=== PATIENT | female | born 1990 | race Caucasian/White ===

== ENCOUNTER 2019-09-30 15:42 | Outpatient (CLI) | payer BC ==
--- NOTE | 2019-09-30 16:24 | Non Stress Test Report ---
Non Stress Test Datetime Report Generated by CPN: 09/30/2019 16:24 INDICATION Indication for Study (NST) Other: Variable in office VITAL SIGNS Temperature - NST: 97.7 MONITORING Monitor Explained: Monitor Explained; Test Explained; Patient Verbalized Understanding Time on Monitor: 09/30/2019 15:50 Time off Monitor: 09/30/2019 16:20 NST Duration: 30 NST INTERVENTIONS NST Interventions: PO Hydration Physician Notified NST: N Bartlett CNM BABY A: [id number] BABY A Movement : Present Contraction Frequency : rare FHR Baseline : 130 Accelerations : 15X15 Decelerations : None Variability : Moderate 6-25bpm NST Review: Meets Criteria for Reactive NST NST Review and Verified By : Edwin Tolbert RN NSWei Results: Reactive NST REPORT Report Trigger: Send Report
== END 2019-09-30 16:36 | disposition home or self-care (01) ==
LOC: LC 15:42
PROVIDERS: ATTEND Obstetrics & Gynecology
DX: O36.8330 Maternal care for abnormalities of the fetal heart rate or rhythm, third trimester, not applicable or unspecified (principal); Z3A.35 35 weeks gestation of pregnancy
CPT/HCPCS: 59025

== ENCOUNTER 2019-10-28 08:18 | Outpatient (CLI) | payer BC ==
[2019-10-28 09:04] LABS: URINE AMPHETAMINES SCREEN NEGATIVE; URINE BARBITURATES SCREEN NEGATIVE; URINE BENZODIAZEPINES SCREEN NEGATIVE; URINE COCAINE SCREEN NEGATIVE; URINE MARIJUANA (THC) SCREEN NEGATIVE; URINE METHADONE SCREEN NEGATIVE; URINE PHENCYCLIDINE SCREEN NEGATIVE
--- NOTE | 2019-10-28 09:33 | Non Stress Test Report ---
Non Stress Test Datetime Report Generated by CPN: 10/28/2019 09:33 DEMOGRAPHIC EGA NST: 39.3 INDICATION Indication for Study (NST) Other: IUP at 39.3; Not in labor VITAL SIGNS Temperature - NST: 98.4 Pulse - NST: 83 RESP - NST: 18 NBPSYS NST: 114 NBPDIA NST: 60 MONITORING Monitor Explained: Monitor Explained; Test Explained; Patient Verbalized Understanding Time on Monitor: 10/28/2019 08:31 Time off Monitor: 10/28/2019 09:14 NST Duration: 43 NST INTERVENTIONS NST Interventions: PO Hydration Physician Notified NST: C. Thompson, CNM BABY A: [id number] BABY A Movement : Present Contraction Frequency : Irreg FHR Baseline : 130 Accelerations : 15X15 Decelerations : Variable Variability : Moderate 6-25bpm NST Review: Meets Criteria for Reactive NST NST Review and Verified By : SAutry NST Results: Reactive NST COMMENTS NST Comments: one area with broken tracing at 0843 questionable variable. NST REPORT Report Trigger: Send Report
== END 2019-10-28 09:26 | disposition home or self-care (01) ==
LOC: LC 08:18
PROVIDERS: ATTEND Student in an Organized Health Care Education/Training Program
DX: O47.1 False labor at or after 37 completed weeks of gestation (principal); O36.8330 Maternal care for abnormalities of the fetal heart rate or rhythm, third trimester, not applicable or unspecified; Z3A.39 39 weeks gestation of pregnancy
CPT/HCPCS: 59025; 80307; 84112

== ENCOUNTER 2019-11-06 16:18 | Outpatient (CLI) | payer BC ==
[2019-11-06 16:58] LABS: APPEARANCE,URINE SLIGHTLY-CLOUDY; BILIRUBIN,URINE NEGATIVE (NEGATIVE); COLOR,URINE YELLOW; GLUCOSE, URINE NEGATIVE (NEGATIVE); KETONES,URINE NEGATIVE (NEGATIVE); LEUKOCYTE ESTERASE,URINE MODERATE (NEGATIVE); NITRITE,URINE NEGATIVE (NEGATIVE); PROTEIN,URINE NEGATIVE (NEGATIVE); URINE SPECIFIC GRAVITY 1.015; UROBILINOGEN,URINE NEGATIVE mg/dL (<2.0)
[2019-11-06 17:20] LABS: URINE AMPHETAMINES SCREEN NEGATIVE; URINE BARBITURATES SCREEN NEGATIVE; URINE BENZODIAZEPINES SCREEN NEGATIVE; URINE COCAINE SCREEN NEGATIVE; URINE MARIJUANA (THC) SCREEN NEGATIVE; URINE METHADONE SCREEN NEGATIVE; URINE PHENCYCLIDINE SCREEN NEGATIVE
--- NOTE | 2019-11-06 18:55 | Non Stress Test Report ---
Non Stress Test Datetime Report Generated by CPN: 11/06/2019 18:55 DEMOGRAPHIC EGA NST: 40.5 INDICATION Indication for Study (NST) Other: LC VITAL SIGNS Temperature - NST: 98.0 MONITORING Monitor Explained: Monitor Explained; Test Explained; Patient Verbalized Understanding Time on Monitor: 11/06/2019 16:35 Time off Monitor: 11/06/2019 16:55 NST Duration: 20 NST INTERVENTIONS NST Interventions: None Physician Notified NST: Dr. Car BABY A: [id number] BABY A Movement : Present Contraction Frequency : irregular FHR Baseline : 135 Accelerations : 15X15 Decelerations : None Variability : Moderate 6-25bpm NST Review: Meets Criteria for Reactive NST NST Review and Verified By : Gerardo Joe RN NST Results: Reactive NST REPORT Report Trigger: Send Report
== END 2019-11-06 19:01 | disposition home or self-care (01) ==
LOC: LC 16:18
PROVIDERS: ATTEND Student in an Organized Health Care Education/Training Program
DX: O47.1 False labor at or after 37 completed weeks of gestation (principal); O48.0 Post-term pregnancy; Z3A.40 40 weeks gestation of pregnancy
CPT/HCPCS: 80307; 81005

== ENCOUNTER 2019-11-06 22:00 | Inpatient (IN) | payer BC ==
[2019-11-06] MEDS ORDERED: RINGERS SOLUTION,LACTATED 1,000 ML IV PRN (22:06)
[2019-11-06] MEDS ORDERED: RINGERS SOLUTION,LACTATED 1,000 ML IV ONE (22:06)
[2019-11-06] MEDS ORDERED: LIDOCAINE 1% INJ-PF (10 MG/ML) 30 ML SDV ONE (22:07)
[2019-11-06] MEDS ORDERED: OXYTOCIN/0.9 % SODIUM CHLORIDE 30 UNIT/500 ML RTUINJ ONE (22:07)
[2019-11-06] MEDS ORDERED: MISOPROSTOL 0.2 MG TABLET ONE ×2 (22:07→22:16)
[2019-11-06] MEDS ORDERED: OXYTOCIN 10 UNIT/ML VIAL ONE (22:07)
[2019-11-06 22:24] LABS: ABSOLUTE LYMPHOCYTES (AUTO) 1.5 10^3/uL (0.5-4.7); ABSOLUTE MONOCYTES (AUTO) 0.9 10^3/uL (0.1-1.4); ABSOLUTE NEUT (AUTO) 11.2 10^3/uL (1.7-8.2); BASOPHILS % (AUTO) 0.3 % (0-2); EOSINOPHILS % (AUTO) 0.1 % (0-6); HEMATOCRIT 35.8 % (36.0-47.0); HEMOGLOBIN 12.1 g/dL (12.0-15.5); LYMPHOCYTES % (AUTO) 10.9 % (13-45); MEAN CORPUSCULAR HEMOGLOBIN 32.4 pg (27.0-33.4); MEAN CORPUSCULAR VOLUME 95 fl (80-97); MONOCYTES % (AUTO) 6.7 % (3-13); PLATELET COUNT 229 10^3/uL (150-450); RED BLOOD COUNT 3.75 10^6/uL (3.72-5.28); RED CELL DISTRIBUTION WIDTH 12.8 % (11.5-14.0); TOTAL CELLS COUNTED % (AUTO) 100 %; WHITE BLOOD COUNT 13.7 10^3/uL (4.0-10.5)
[2019-11-06] MEDS ORDERED: BUPIVACAINE HCL 0.25 % INJ/PF (2.5 MG/1 ML) 30 ML VIAL ONE (22:55)
[2019-11-06] MEDS ORDERED: FENTANYL/BUPIVACAINE/NS/PF 300 MCG/150 ML RTUINJ EPI ONE (22:55)
[2019-11-06] MEDS ORDERED: EPHEDRINE SULFATE INJ 50 MG/1 ML AMPULE ONE (22:55)
--- NOTE | 2019-11-07 00:02 | Admission Physical ---
Datetime Report Generated by CPN: 11/07/2019 00:02 CURRENT ADMISSION Chief Complaint: Uterine Contractions Indication for Induction: Not Applicable Admit Impression : Term, Intrauterine ; Active Labor; Intact Membranes Admit Plan: Admit to Unit; Initiate Labor Protocol ALLERGIES Medication Allergies: No Medication Allergies: No Known Allergies (10/28/2019) Latex: No Latex Allergies OBSTETRICAL HISTORY EDC: 11/01/2019 00:00 : 1 Para: 0 Term: 0 : 0 SAB: 0 IAB: 0 Ectopic: 0 Livin Cesareans: 0 VBACs: 0 Multiple Births: 0 Gestational Diabetes: Yes Rh Sensitization: No Incompetent Cervix: No MARJORIE: No Infertility: No ART Treatment: No Uterine Anomaly: No IUGR: No Hx Previous C/S: No Macrosomia: No Hx Loss/Stillborn: No PIH: No Hx : No Placenta Previa/Abruption: No Depression/PP Depression: No PTL/PROM: No Post Hemorrhage: No Current Procedures: Ultrasound Obstetrical History Comments: g1-Current SEE RECORDS Alcohol: No Marijuana : No Cocaine: No Other Illicit Drugs: No Cigarettes: Never Smoker. [id number] MEDICAL HISTORY Diabetes Type: Gestational Diabetes Blood Transfusion: No Pulmonary Disease (Asthma, TB): No Breast Disease: No Hypertension: No Supervisor Print Line Surgery: No Heart Disease: No Hosp/Surgery: No Autoimmune Disorder: No Anesthetic Complications: No Kidney Disease: Yes Abnormal Pap Smear: No Neuro/Epilepsy: No Psychiatric Disorders: No Other Medical Diseases: No Hepatitis/Liver Disease: No Significant Family History: No Varicosities/Phlebitis: No Trauma/Violence : No Thyroid Dysfunction: No INFECTIOUS HISTORY Gonorrhea: No Genital Herpes: No Chlamydia: Yes Tuberculosis: No Syphilis: No Hepatitis: No HIV/AIDS Exposure: No Rash or Viral Illness: No HPV: Yes Infectious History Comments: chlamydia "a long time ago"; HPV PHYSICAL EXAM General: Normal HEENT: Normal Neurologic: Normal Thyroid: Deferred Heart: Normal Lungs: Normal Breast: Deferred Back: Normal Abdomen: Normal Genitourinary Exam: Normal Extremities: Normal DTRs: Normal Pelvic Type: Adequate Vital Signs: Reviewed VAGINAL EXAM Dilatation: 6 Effacement: 80 Station: -2 Contraction Comments: q 2-3 MEMBRANES Membranes: Intact FETUS A EGA: 40.5 Monitoring: External US FHR- Baseline: 125 Variability: Moderate 6-25bpm Accelerations: Absent Decelerations: None FHR Category: Category I Presentation: Vertex Admit Comment: 29yo at 40+5ega presents for active labor. GBS negative. H/o nephrolithiasis. GDMA1. Admit to labor and delivery for labor. Anticipate . W 7#15oz (3591g). o/w uncomplicated. Pt desires epidural. PLANS FOR LABOR AND DELIVERY Labor and Delivery: None Pain Management: Epidural Feeding Preference: Breast Benefit of Breast Feed Discussed: Yes Circumcision: N/A INFORMED CONSENT Informed Consent Obtained: Vaginal Delivery; Risks, Benefits and Alternatives Discussed Signature: with User ID: [email or web address]
[2019-11-07] MEDS ORDERED: MAGNESIUM HYDROXIDE SUSP 30 ML UDCUP PO PRN (05:26)
[2019-11-07] MEDS ORDERED: MISOPROSTOL 0.2 MG TABLET PR PRN (05:26)
[2019-11-07] MEDS ORDERED: PSEUDOEPHEDRINE HCL 30 MG TABLET PO PRN (05:26)
[2019-11-07] MEDS ORDERED: DIPHENHYDRAMINE HCL 25 MG CAPSULE PO PRN (05:26)
[2019-11-07] MEDS ORDERED: ACETAMINOPHEN WITH CODEINE #3 TABLET PO PRN (05:26)
[2019-11-07] MEDS ORDERED: BENZOCAINE/MENTHOL AEROSOL SPRAY 56 ML TOP PRN (05:26)
[2019-11-07] MEDS ORDERED: ACETAMINOPHEN 325 MG TABLET PO PRN (05:26)
[2019-11-07] MEDS ORDERED: DIBUCAINE 1% OINTMENT 28 GM TP PRN (05:26)
[2019-11-07] MEDS ORDERED: NA PHOS,M-B/NA PHOS,DI-BA (ADULT) 133 ML ENEMA PR PRN (05:26)
[2019-11-07] MEDS ORDERED: MEASLES,MUMPS&RUBELLA VACC/PF 0.5 ML VIAL SUBCUT PRN (05:26)
[2019-11-07] MEDS ORDERED: DIPH/PERTUSS(ACELL)/TETANUS VAC/PF 0.5 ML SYR (>=10YO) IM PRN (05:26)
[2019-11-07] MEDS ORDERED: ZOLPIDEM TARTRATE 5 MG TABLET PO PRN (05:26)
[2019-11-07] MEDS ORDERED: PROMETHAZINE HCL 25 MG SUPP.RECT PR PRN (05:26)
[2019-11-07] MEDS ORDERED: OXYTOCIN/0.9 % SODIUM CHLORIDE 30 UNIT/500 ML RTUINJ IV PRN (05:26)
[2019-11-07] MEDS ORDERED: PROMETHAZINE HCL 25 MG TABLET PO PRN (05:26)
[2019-11-07] MEDS ORDERED: PROMETHAZINE HCL INJ 25 MG/1 ML VIAL IV PRN (05:26)
[2019-11-07] MEDS ORDERED: IBUPROFEN 800 MG TABLET ONE (05:44)
[2019-11-07] MEDS: IBUPROFEN 800 MG TABLET PO SCH ×3 (05:45→21:50)
[2019-11-07] MEDS ORDERED: CEFAZOLIN 2 GM/D5W RTU 2 GM/50 ML RTUPB IV ONE (06:14)
[2019-11-07] MEDS ORDERED: CEFAZOLIN 1 GM/D5W RTU 2 GM/100 ML RTUPB IV ONE (06:22)
--- NOTE | 2019-11-07 07:22 | Delivery Summary ---
Del Sum A-C Datetime Report Generated by CPN: 11/07/2019 07:22 DELIVERY PERSONNEL DELIVERY PERSONNEL: [id number] Delivery Doctor:: Corrina Car MD Anesthesiologist:: Troy VENEER PRODUCTION MACHINE OPERATOR:: Normile, Pedro Labor and Delivery Nurse:: Kerrie Hill RNfurniture sales consultant Nurse:: Camron Vaughan RN Nursery Nurse:: Cassie Mcelroy RN [place]/MOLD SWABBER: Abby Green, ST MATERNAL INFORMATION Delivery Anesthesia: Epidural Medications After Delivery: Pitocin 30 Units in 500ml NS/D5W; Cytotec 800mcg Per Rectum/Vagina Estimated Blood Loss (ml): 400 Delivery QBL: 350 Maternal Complications: None Provider Comments: VFI delivered in VERA presentation. No nuchal cord. Shoulders and body delivered without difficulty. Cord doubly clamped and cut and to maternal abdomen. Placenta delivered intact spontaneously. FF at U then boggy and cytotec 800mcg given OH. 2nd degree perineal laceration repaired with good hemostasis. Mother and baby stable upon provider leaving the room. LABOR SUMMARY EDC: 11/01/2019 00:00 No. Babies in Womb: 1 Attempted: No Labor Anesthesia: Epidural LABOR INFORMATION Reason for Induction: Not Applicable Onset of Labor: 11/06/2019 22:00 Complete Dilatation: 11/07/2019 03:05 Oxytocin: N/A Group B Beta Strep: Negative Antibiotics # of Doses: 0 Antibiotics Time of Last Dose: N/A Name of Antibiotic Given: N/A Steroids Given: None Reason Steroids Not Administered: Not Applicable MEMBRANES Membranes Rupture Method: Spontaneous Rupture of Membranes: 11/06/2019 23:31 Length of Rupture (hr): 5.48 Amniotic Fluid Color: Clear Amniotic Fluid Amount: Moderate Amniotic Fluid Odor: Normal STAGES OF LABOR Stage 1 hr: 5 Stage 1 min: 5 Stage 2 hr: 1 Stage 2 min: 55 Stage 3 hr: 0 Stage 3 min: 6 Total Time in Labor hr: 7 Total Time in Labor min: 6 VAGINAL DELIVERY Episiotomy: None Laceration #1: Perineal Laceration Extension #1: Second Degree Laceration Repair: Yes Laceration Repair Note: 2nd degree perineal laceration repaired with good hemostasis. Sponge Count Correct: Yes Sharps Count Correct: Yes CSECTION DELIVERY Primary Indication: N/A Secondary Indication: N/A CSection Incidence: N/A Labor: N/A Elective: N/A CSection Incision: N/A BABY A INFORMATION Infant Delivery Date/Time: 11/07/2019 05:00 Method of Delivery: Vaginal Nurse Controlled Delivery: No Born in Route : No : N/A Forceps: N/A Vacuum Extraction: N/A Shoulder Dystocia : No PRESENTATION/POSITION BABY A Presentation: Cephalic Cephalic Presentation: Vertex Vertex Position: Right Occipital Anterior Breech Presentation: N/A PLACENTA INFORMATION BABY A Placenta Delivery Time : 11/07/2019 05:06 Placenta Method of Delivery: Spontaneous Placenta Status: Delivered SCORES BABY A Heart Rate 1 min: >100 bpm Resp Effort 1 min: Good Cry Reflex Irritability 1 min: Cough or Sneeze or Pulls Away Muscle Tone 1 min: Active Motion Color 1 min: Blue/Pale Resuscitation Effort 1 min: Tactile Stimulation SCORE 1 MIN: 8 Heart Rate 5 min: >100 bpm Resp Effort 5 min: Good Cry Reflex Irritability 5 min: Cough or Sneeze or Pulls Away Muscle Tone 5 min: Active Motion Color 5 min: Body [place], Extremities Blue Resuscitation Effort 5 min: Tactile Stimulation SCORE 5 MIN: 9 INFORMATION BABY A Gestational Age at Delivery: 40.6 Gestational Status: Full Term- 39- 40.6 Weeks Infant Outcome : Liveborn Infant Condition : Stable Sex: Female IDENTIFICATION BABY A Verification Date/Time: 11/07/2019 05:38 ID Band Number: [id number] Mother's Name Verified: Yes RN Verifying : Yolanda NoriegaBrianne RN Additional Verifying Personnel: John Vaughan RN WEIGHT/LENGTH BABY A Birthweight (gm): 3770 Weight (lb): 8 Infant Weight (oz): 5 Infant Length (in): 20.50 Infant Length (cm): 52.07 CORD INFORMATION BABY A No. Cord Vessels: 3 Nuchal Cord : N/A Cord Blood Taken: Yes-For Storage (Mom's Blood type +) Infant Suction: Mouth; Nose ASSESSMENT BABY A Physical Findings at Delivery: Molding of the Head; Other Physical Findings- Other: See full nursery market maker Respirations: Appears Normal Skin to Skin: Yes Skin to Skin Time (min): 60 Design Manager/ALS Called : No Care By: Ilene Harveyh RN Transferred To: Remains with Mother BABY B INFORMATION : N/A SIGNATURES Signature: with User ID: [email or web address]
--- NOTE | 2019-11-07 07:22 | Warning Signs in Babies ---
VOD Warning Signs Datetime Report Generated by [facility]: 11/07/2019 07:22 VOD#[id number] -Warning Signs in Babies: Needs to be viewed. (10/28/2019 08:24:Kerrie Hill RN)
[2019-11-07] MEDS ORDERED: METHYLERGONOVINE MALEATE INJ/PF 0.2 MG/1 ML AMPULE ONE (07:37)
--- NOTE | 2019-11-07 07:42 | Warning Signs in Babies ---
VOD Warning Signs Datetime Report Generated by [facility]: 11/07/2019 07:42 VOD#608 -Warning Signs in Babies: Viewed with Parent(s)/Family (11/07/2019 07:15:Malia Palm RN)
[2019-11-07] MEDS ORDERED: BENZOCAINE/MENTHOL AEROSOL SPRAY 56 ML ONE (08:13)
[2019-11-07] MEDS: PRENATAL VITAMIN W DHA CAPSULE PO SCH (09:33)
[2019-11-07] MEDS: FAMOTIDINE 20 MG TABLET PO SCH ×2 (09:34→21:45)
[2019-11-07] MEDS: FERROUS SULFATE 325 MG TABLET PO SCH ×2 (09:35→18:07)
[2019-11-07] MEDS: SENNOSIDES/DOCUSATE 8.6-50 MG 1 EACH TABLET PO SCH (09:35)
[2019-11-07] MEDS: DOCUSATE SODIUM 100 MG CAPSULE PO SCH ×2 (09:35→18:08)
[2019-11-07] MEDS: ACETAMINOPHEN WITH CODEINE #3 TABLET PO PRN ×3 (10:00→19:19)
[2019-11-07] MEDS: GLYCERIN/WITCH HAZEL LEAF 1 EACH MED..WIPE TP PRN ×2 (16:41→21:45)
[2019-11-08] MEDS: IBUPROFEN 800 MG TABLET PO SCH ×3 (05:36→21:58)
[2019-11-08 07:06] LABS: HEMATOCRIT 26.9 % (36.0-47.0); MEAN CORPUSCULAR HEMOGLOBIN 33.1 pg (27.0-33.4); MEAN CORPUSCULAR VOLUME 97 fl (80-97); PLATELET COUNT 157 10^3/uL (150-450); RED BLOOD COUNT 2.76 10^6/uL (3.72-5.28); RED CELL DISTRIBUTION WIDTH 13.6 % (11.5-14.0)
[2019-11-08 07:14] LABS: HEMOGLOBIN 9.2 g/dL (12.0-15.5)
--- NOTE | 2019-11-08 08:48 | PDOC PROGRESS REPORT ---
Subjective-OB Progress Note for:: 11/08/19 Subjective: Doing well, holding baby, ambulating without issues, Physical Exam (OB) Vital Signs: Temp Pulse Resp BP Pulse Ox 97.6 F 71 18 105/54 L 100 11/08/19 07:28 11/08/19 07:28 11/08/19 07:28 11/08/19 07:28 11/08/19 07:28 Intake & Output 11/07/19 11/08/19 11/09/19 06:59 06:59 06:59 Intake Total 2000 700 Output Total 700 Balance 2000 0 Weight 96 kg - PIH/Pre-Eclampsia Clonus: Negative Headache: Absent Epigastric Pain: No Visual Changes: No - Lochia Lochia Amount: Small 10-25 ml Lochia Color: Rubra/Red - Abdomen Description: Soft, Round Hernia Present: No Fundal Description: Firm, Midline Fundal Height: u/u - u/2 Objective-Diagnostic Laboratory: 11/08/19 06:50 11/08/19 06:50 WBC 11.0 H RBC 2.76 L Hgb 9.2 L D Hct 26.9 L MCV 97 MCH 33.1 MCHC 34.0 RDW 13.6 Plt Count 157 Assessment and Plan(PN) - Assessment and Plan (1) Obstetrical laceration, second degree Is this a current diagnosis for this admission?: Yes (2) Vaginal delivery Is this a current diagnosis for this admission?: Yes - Time Spent with Patient Time with patient: Less than 15 minutes Medications reviewed and adjusted accordingly: Yes - Disposition Anticipated Discharge: Home
[2019-11-08] MEDS: ACETAMINOPHEN WITH CODEINE #3 TABLET PO PRN ×3 (10:09→18:20)
[2019-11-08] MEDS: DOCUSATE SODIUM 100 MG CAPSULE PO SCH ×2 (10:10→17:16)
[2019-11-08] MEDS: FAMOTIDINE 20 MG TABLET PO SCH ×2 (10:10→21:57)
[2019-11-08] MEDS: SENNOSIDES/DOCUSATE 8.6-50 MG 1 EACH TABLET PO SCH (10:10)
[2019-11-08] MEDS: PRENATAL VITAMIN W DHA CAPSULE PO SCH (10:10)
[2019-11-08] MEDS: FERROUS SULFATE 325 MG TABLET PO SCH ×2 (10:10→17:16)
[2019-11-09] MEDS: ACETAMINOPHEN WITH CODEINE #3 TABLET PO PRN ×3 (00:22→15:06)
[2019-11-09] MEDS: IBUPROFEN 800 MG TABLET PO SCH ×2 (06:02→13:37)
[2019-11-09] MEDS: DOCUSATE SODIUM 100 MG CAPSULE PO SCH (09:36)
[2019-11-09] MEDS: SENNOSIDES/DOCUSATE 8.6-50 MG 1 EACH TABLET PO SCH (09:36)
[2019-11-09] MEDS: FAMOTIDINE 20 MG TABLET PO SCH (09:36)
[2019-11-09] MEDS: PRENATAL VITAMIN W DHA CAPSULE PO SCH (09:36)
[2019-11-09] MEDS: FERROUS SULFATE 325 MG TABLET PO SCH (09:36)
--- NOTE | 2019-11-09 09:43 | PDOC DISCHARGE SUMMARY ---
Impression - Admit/DC Date/PCP Admission Date/Primary Care Provider: 11/06/19 22:20 HEAVEN CAPELLAN MD Discharge Date: 11/09/19 - PP Day #2, doing well, no complaints, A+, Rubella immune, - Discharge Diagnosis (1) Acute blood loss anemia Is this a current diagnosis for this admission?: Yes (2) Active labor at term Is this a current diagnosis for this admission?: Yes (3) Obstetrical laceration, second degree Is this a current diagnosis for this admission?: Yes (4) Vaginal delivery Is this a current diagnosis for this admission?: Yes - Additional Information Resuscitation Status: Full Code Discharge Diet: As Tolerated, Regular Discharge Activity: Activity As Tolerated, No Lifting Over 10 Pounds, Pelvic Rest Referrals: HEAVEN CAPELLAN MD [Primary Care Provider] - Prescriptions: Ibuprofen [Motrin 800 mg Tablet] 800 mg PO Q8 #60 tablet Home Medications: Ferrous Sulfate [Feosol 325 mg Tablet] 1 tab PO DAILY 10/28/19 Pnv 102/Iron/Folate 1/Dss/Dha [Vitafol Fe+ Docusate Combo Pck] 1 tab PO DAILY 10/28/19 Ibuprofen [Motrin 800 mg Tablet] 800 mg PO Q8 #60 tablet 11/09/19 HPI Reason(s) for Admission: Onset of Labor Intrapartum Procedure(s): Spontaneous Vaginal Delivery Complication(s): Laceration-Perineal Laceration-Degree: 2nd Results Laboratory Results: WBC 11.0 10^3/uL (4.0-10.5) H 11/08/19 06:50 RBC 2.76 10^6/uL (3.72-5.28) L 11/08/19 06:50 Hgb 9.2 g/dL (12.0-15.5) L D 11/08/19 06:50 Hct 26.9 % (36.0-47.0) L 11/08/19 06:50 MCV 97 fl (80-97) 11/08/19 06:50 MCH 33.1 pg (27.0-33.4) 11/08/19 06:50 MCHC 34.0 g/dL (32.0-36.0) 11/08/19 06:50 RDW 13.6 % (11.5-14.0) 11/08/19 06:50 Plt Count 157 10^3/uL (150-450) 11/08/19 06:50 Lymph % (Auto) 10.9 % (13-45) L 11/06/19 22:14 Foster % (Auto) 6.7 % (3-13) 11/06/19 22:14 Eos % (Auto) 0.1 % (0-6) 11/06/19 22:14 Baso % (Auto) 0.3 % (0-2) 11/06/19 22:14 Absolute Neuts (auto) 11.2 10^3/uL (1.7-8.2) H 11/06/19 22:14 Absolute Lymphs (auto) 1.5 10^3/uL (0.5-4.7) 11/06/19 22:14 Absolute Monos (auto) 0.9 10^3/uL (0.1-1.4) 11/06/19 22:14 Absolute Eos (auto) 0.0 10^3/uL (0.0-0.6) 11/06/19 22:14 Absolute Basos (auto) 0.0 10^3/uL (0.0-0.2) 11/06/19 22:14 Seg Neutrophils % 82.0 % (42-78) H 11/06/19 22:14 RPR NONREACTIVE (NONREACTIVE) 11/06/19 22:14 Blood Type A POSITIVE 11/06/19 22:14 Antibody Screen NEGATIVE 11/06/19 22:14 Plan Health Concerns: increase Iron rich foods Time Spent: Less than 30 Minutes
[2019-11-09 14:24] VITALS: BP 131/67
== END 2019-11-09 15:15 | disposition home or self-care (01) | DRG 806 ==
LOC: LC 22:00 → LR 22:20 → 2N 11-07 08:25
PROVIDERS: ADMIT Student in an Organized Health Care Education/Training Program; ATTEND Student in an Organized Health Care Education/Training Program
PROC: 10E0XZZ Delivery of Products of Conception, External Approach (ICD-10-PCS; principal; 2019-11-07)
PROC: 0KQM0ZZ Repair Perineum Muscle, Open Approach (ICD-10-PCS; 2019-11-07)
DX: O48.0 Post-term pregnancy (principal); D62 Acute posthemorrhagic anemia; Z37.0 Single live birth; O90.81 Anemia of the puerperium; O70.1 Second degree perineal laceration during delivery; Z3A.40 40 weeks gestation of pregnancy
CPT/HCPCS: 36415; 85025; 85027; 86592; 86850; 86900; 86901; 94760; J0690; J2210; J2590; J3010; J3490